=== PATIENT | male | born 1965 | race Two or more races ===

== ENCOUNTER 2016-10-09 21:31 | Inpatient (IN) | payer BC, MEDICAID ==
[~2016-10-09] VITALS: Ht 167.6 cm; Wt 84.9 kg
[2016-10-09] MEDS ORDERED: hydrALAzine 20 MG INJ IV ONE (22:30)
[2016-10-09] MEDS ORDERED: LIDOCAINE/MYLANTA 40 ML BTL PO ONE (22:30)
[2016-10-09 22:45] LABS: BASOPHILS % 0.3 % (0.0-2.0); EOSINOPHILS # 0.2 10^3/ul (0.0-0.5); EOSINOPHILS % 2.7 % (0.0-7.0); HEMATOCRIT 31.5 % (42.0-52.0); HEMOGLOBIN 10.6 g/dl (14.0-18.0); INR 1.06; LYMPHOCYTES % 16.4 % (15.0-51.0); MEAN CORPUSCULAR HEMOGLOBIN 30.2 pg (29.0-33.0); MEAN CORPUSCULAR HGB CONC 33.6 g/dl (32.0-37.0); MEAN CORPUSCULAR VOLUME 89.9 fl (82.0-101.0); MEAN PLATELET VOLUME 9.5 fl (7.4-10.4); MONOCYTE # 0.3 10^3/ul (0.3-0.9); MONOCYTES % 5.6 % (0.0-11.0); NEUTROPHIL # 4.4 10^3/ul (1.6-7.5); PLATELET COUNT 105 10^3/UL (140-440); PROTIME 13.8 Sec (12.2-14.2); PT RATIO 1.1; RED CELL DISTRIBUTION WIDTH 13.9 % (11.5-14.5); UNCORRECTED WBC 5.9 10^3/ul (4.8-10.8); WHITE BLOOD COUNT 5.9 10^3/ul (4.8-10.8)
[2016-10-09 22:46] LABS: PARTIAL THROMBOPLASTIN TIME 33.8 Sec (25.0-35.0)
[2016-10-09 22:48] LABS: ALBUMIN 4.1 g/dl (3.3-4.9); CONDITION 1; POTASSIUM 4.9 mmol/L (3.5-5.1)
[2016-10-09 22:50] LABS: CREATININE 10.5 mg/dl (0.61-1.24)
[2016-10-09 22:51] LABS: ALBUMIN/GLOBULIN RATIO 1.32; CALCIUM 9.6 mg/dl (8.4-10.2); TOTAL PROTEIN 7.2 g/dl (6.1-8.1)
[2016-10-09 23:02] LABS: TROPONIN-I 0.034 ng/ml (0.00-0.12)
--- NOTE | 2016-10-09 23:17 | RADRPT ---
PROCEDURE: XR Chest. CLINICAL INDICATION: Chest pain. TECHNIQUE: Single frontal view. COMPARISON: None. FINDINGS: There is interstitial disease bilaterally consistent with pulmonary edema. Superimposed pneumonia a t the right lung base cannot be excluded. The heart is enlarged. There is a small right pleural effusion. There is no left pleural effusion. There is no pneumothorax. IMPRESSION: 1. Pulmonary edema. 2. Possible right basilar pneumonia. 3. Cardiomegaly. 4. Small right pleural effusion. RPTAT: QQ .Keyon Perez MD, MD Date Time Electronically viewed and signed by .Keyon Perez MD, MD on 10/09/2016 23:17 .R/
--- NOTE | 2016-10-10 01:59 | ERA ---
ER Documentation Chief Complaint Date/Time DATE: 10/10/16 TIME: 01:57 Chief Complaint epigastric pain radiating to throat x 3 weeks now,last HD was 10/07/16 HPI This is a 70 mg epigastric pain radiating to 3 weeks. He also states admitted for short of breath. No nausea no vomiting no chills. Patient is a dialysis patient. Primary care physician is Dr. Jacobo. No chest pain. No other current complaints. Last dialysis on Monday. ROS All systems reviewed and are negative except as per history of present illness. Allergies Allergies: Coded Allergies: No Known Allergy (Unverified , 10/09/16) PMhx/Soc History of Surgery: Yes (AV fistula placement) Anesthesia Reaction: No Hx Neurological Disorder: No Hx Respiratory Disorders: No Hx Cardiac Disorders: Yes (HTN) Hx Psychiatric Problems: No Hx Miscellaneous Medical Probl: Yes (DM2, ESRD on HD MWF) Hx Alcohol Use: No Hx Substance Use: No Hx Tobacco Use: No Smoking Status: Former smoker Physical Exam Vitals Vital Signs Date Time Temp Pulse Resp B/P Pulse Ox O2 Delivery O2 Flow Rate FiO2 10/10/16 00:17 84 22 184/110 98 Room Air 10/09/16 23:00 86 20 179/109 99 Room Air 10/09/16 21:35 98.2 93 28 199/118 93 Physical Exam Const: [] Head: Atraumatic Eyes: Normal Conjunctiva ENT: Normal External Ears, Nose and Mouth. Neck: Full range of motion..~ No meningismus. Resp: Clear to auscultation bilaterally Cardio: Regular rate and rhythm, no murmurs Abd: Soft, non tender, non distended. Normal bowel sounds Skin: No petechiae or rashes Back: No midline or flank tenderness Ext: No cyanosis, or edema Neur: Awake and alert Psych: Normal Mood and Affect Result Diagram: 10/09/160 10/09/160 Results 24 hrs Laboratory Tests Test 10/09/16 22:10 Activated Partial Thromboplast Time 33.8Sec Alanine Aminotransferase (ALT/SGPT) 27IU/L Albumin 4.1g/dl Albumin/Globulin Ratio 1.32 Alkaline Phosphatase 157IU/L Anion Gap 22 Aspartate Amino Transf (AST/SGOT) 13IU/L B-Type Natriuretic Peptide 70211ZO/ML Basophils # 0.010^3/ul Basophils % 0.3% Blood Urea Nitrogen 64mg/dl Calcium Level 9.6mg/dl Carbon Dioxide Level 21mmol/L Chloride Level 105mmol/L Creatinine 10.50mg/dl Direct Bilirubin 0.00mg/dl Eosinophils # 0.210^3/ul Eosinophils % 2.7% Globulin 3.10g/dl Glucose Level 102mg/dl Hematocrit 31.5% Hemoglobin 10.6g/dl INR International Normalized Ratio 1.06 Indirect Bilirubin 0.0mg/dl Lipase 195U/L Lymphocytes # 1.010^3/ul Lymphocytes % 16.4% Mean Corpuscular Hemoglobin 30.2pg Mean Corpuscular Hemoglobin Concent 33.6g/dl Mean Corpuscular Volume 89.9fl Mean Platelet Volume 9.5fl Monocytes # 0.310^3/ul Monocytes % 5.6% Neutrophils # 4.410^3/ul Neutrophils % 75.0% Nucleated Red Blood Cells # 0.010^3/ul Nucleated Red Blood Cells % 0.0/100WBC Platelet Count 58630^3/UL Potassium Level 4.9mmol/L Prothrombin Time 13.8Sec Prothrombin Time Ratio 1.1 Red Blood Count 3.5010^6/ul Red Cell Distribution Width 13.9% Sodium Level 143mmol/L Total Bilirubin 0.0mg/dl Total Protein 7.2g/dl Troponin I 0.034ng/ml White Blood Count 5.910^3/ul Current Medications Medications (Trade) Dose Ordered Sig/Javid Route PRN Reason Start Time Stop Time Status Last Admin Dose Admin Miscellaneous Medication (Gi Cocktail (2)) 40 ml ONCE ONCE PO 10/09/16 22:30 10/09/16 22:31 DC 10/09/16 22:29 Hydralazine HCl (Apresoline) 20 mg ONCE ONCE IV 10/09/16 22:30 10/09/16 22:31 DC 10/09/16 22:30 Procedures/MDM EKG: Rate/Rhythm: Normal Sinus Rhythm QRS, ST, T-waves: No changes consistent w/ acute ischemia Impression: No evidence of ischemia or arrhythmia Chest X-ray 1V Interpreted by me: Soft Tissue: No acute abnormalities Bones: No acute abnormalities Mediastinum/Cardiac Silhouette/Lungs: Increased interstitial fluid markings. Impression: Pulmonary edema Patient's heart failure symptoms is concerning for acute decompensation and will require inpatient workup and monitoring. Further w/u for ischemia, arrhythmia, PE or dissection will be deferred to the inpatient team. Accepting Care Team: Current data and ongoing care discussed. Time: 1 AM Primary Provider: Dr. Nava who is on-call for Dr. Jacobo Consulting: None Outstanding Data: none Critical Care: Time: 45 minutes Treatments/Evaluations: Close monitoring and treatment of unstable vital signs, cardiorespiratory, and neurologic status, while maintaining tight balance of fluid, respiratory, and cardiac interventions. Departure Diagnosis: Primary Impression: Hypertensive emergency Additional Impression: Pulmonary edema Qualified Code: J81.0 - Acute pulmonary edema Condition: Critical ROSENDO LOOMIS Oct 10, 2016 01:59
[2016-10-10] MEDS ORDERED: CNC30T PO (06:47)
[2016-10-10] MEDS ORDERED: SEVE800T10 PO (06:48)
[2016-10-10] MEDS ORDERED: CARV6.2579 PO (06:48)
[2016-10-10] MEDS ORDERED: NIFE90TA11 PO (06:48)
[2016-10-10] MEDS: NIFEdipine (XL) 90 MG TAB PO SCH (09:10)
[2016-10-10] MEDS: SEVELAMER 800 MG TAB PO SCH ×2 (09:10→17:12)
[2016-10-10] MEDS: CINACALCET 30 MG TAB PO SCH (09:10)
[2016-10-10] MEDS: PANTOPRAZOLE (EC) 40 MG TAB PO SCH (10:38)
[2016-10-10] MEDS ORDERED: ONDANSETRON 4 MG TAB PO PRN (11:00)
[2016-10-10] MEDS ORDERED: DOCUSATE SODIUM 100 MG CAP PO PRN (11:00)
[2016-10-10] MEDS ORDERED: ACETAMINOPHEN 325 MG TAB PO PRN (11:00)
[2016-10-10] MEDS ORDERED: EPOETIN 10000 UNITS/1 ML INJ (ESRD) SC SCH (11:00)
[2016-10-10] MEDS: HEPARIN 5,000 UNIT/0.5 ML SYG SC SCH ×2 (11:26→20:53)
--- NOTE | 2016-10-10 11:56 | RADRPT ---
PROCEDURE: Ultrasound of the abdomen and retroperitoneum. CLINICAL INDICATION: Epigastric pain TECHNIQUE: Multiple real-time longitudinal and transverse images of the abdomen were acquired util izing a curved array transducer. Images were reviewed on a high-resolution PACS workstation. COMPARISON: None FINDINGS: The liver is normal in size, shape, and echogenicity. No hepatic masses are seen. There is no evide nce of intra or extrahepatic ductal dilatation. The common bile duct measures 4.2 mm in maximal dim ension. The gallbladder is contracted. No gallstones are identified. Gallbladder wall thickening i s poorly evaluated in the setting of a contracted gallbladder. The visualized portions of the pancreas are unremarkable with obscuration of the tail of the pancrea s. No abdominal free fluid is seen. Note is made of small bilateral pleural effusions. The spleen is normal and measures 11.0 cm. The kidneys are without calcifications or hydronephrosis. The kidneys are somewhat small. There is a 9 mm right upper pole renal cyst and 8 mm left a 4 inches cyst. The right kidney measures 7.1 cm, and the left kidney measures 7.3 cm. The visualized portions of the aorta and inferior vena cava are unremarkable. IMPRESSION: 1. Small bilateral kidneys with small cysts. 2. Small bilateral pleural effusions. RPTAT: KK .Tj Urias MD, MD Date Time Electronically viewed and signed by .Tj Urias MD, MD on 10/10/2016 11:56 .B/
--- NOTE | 2016-10-10 17:05 | CONS ---
DATE OF ADMISSION: 10/09/2016 DATE OF CONSULTATION: 10/10/2016 CHIEF COMPLAINT: Shortness of breast. HISTORY OF PRESENT ILLNESS: This is a 51-year-old male with a past medical history of end-stage rocky al disease on dialysis Monday, Monday, Monday with access of left upper extremity AV fistula, his tory of hypertension and history of diabetes who presented to [facility] with comp laints of shortness of breath. The patient also states over the last 2 to 3 weeks he has also been noted to have epigastric pain with radiation to his thighs that has been ongoing. These symptoms ar e in conjunction with worsening shortness breath that brought him to the emergency room. Upon arriv al, the patient had a chest x-ray which showed findings of edema, questionable pneumonia. The patie nt in the emergency room was noted to be hypertensive with systolic pressures in the 180s. He was t reated with IV hydralazine. The patient otherwise denies any hemoptysis, hemetemesis, hematochezia. PAST MEDICAL HISTORY: Includes a history of end-stage renal disease, hypertension and diabetes. PAST SURGICAL HISTORY: Status post AV fistula placement. FAMILY HISTORY: No family history of heart disease. SOCIAL HISTORY: Does not drink, smoke or do drugs. MEDICATIONS: Reviewed and reconciled. ALLERGIES: NO KNOWN DRUG ALLERGIES. REVIEW OF SYSTEMS: A 14-point review of systems was conducted. Pertinent positives as stated in HP I, otherwise negative. PHYSICAL EXAMINATION: VITAL SIGNS: Blood pressure is 181/113, respiratory rate 20, pulse 82, temperature 98.6. HEENT: Head is normocephalic. NECK: Supple. HEART: Regular rate. LUNGS: Show diminished breath sounds at base. ABDOMEN: Soft with mild tenderness to palpation in mid epigastric region. No rebound or guarding. EXTREMITIES: Negative for clubbing, cyanosis. Positive edema. DERMATOLOGIC: No rashes. MUSCULOSKELETAL: No joint effusions. NEUROLOGIC: No focal deficits. LABORATORY DATA: Shows white count 5.9, hemoglobin 10.6, hematocrit 31.5, platelet count 105. Sodi um 143, potassium 4.9, chloride 105, BUN 64, creatinine 10.5. IMAGING STUDIES: Chest x-ray reviewed. ASSESSMENT AND PLAN: This is a 51-year-old male who presents with: 1. Acute hypoxemic respiratory failure, etiology secondary to pulmonary edema, volume overload. Pl an is for the patient to be dialyzed today. Will anticipate dialysis daily. We will also attempt 2 to 3 liters of ultrafiltration. We will otherwise continue supplemental oxygen and will give nebul izer therapy as needed. Monitor closely. 2. Hypertensive urgency, etiology in part due to increased intravascular volume. Plan is to contin ue current blood pressure regimen. We will ultrafiltrate with hemodialysis. 3. Mineral bone disorder. Continue to monitor calcium, phosphorus levels. Defer phosphate binders at this time. 4. Anemia of end-stage renal disease. Will continue to monitor H and H levels. Will give Epogen w ith dialysis. 5. History of diabetes. We will monitor Accu-Cheks q.a.c. and at bedtime. 6. Mid epigastric pain. Etiology is unclear, possibly due to gastroesophageal reflux disease. The patient's LFTs are within normal limits. Will check abdominal ultrasound, monitor closely. 7. Gastroesophageal reflux disease with prophylaxis. The patient was placed on heparin and Protoni x. 8. Volume overload secondary to end-stage renal disease. As stated above, the patient will receive hemodialysis daily until euvolemic. Dictated By: ELIO ALEMAN/MARKIE Conf#: [id number] DID#: [id number]
[2016-10-10 17:51] VITALS: TEMP 98.6
[2016-10-10 18:21] VITALS: Ht 167.6 cm; Wt 84.9 kg
[2016-10-10 18:27] VITALS: BP 159/102; PULSE 83; PULSE 88; RESP 20
[2016-10-10 20:33] VITALS: BP 159/96; RESP 20
[2016-10-10 20:59] VITALS: PULSE 84
[2016-10-11] VITALS (22 sets, daily range): BP systolic 150–176; BP diastolic 84–102; PULSE 73–94; RESP 19–20
[2016-10-11 08:19] LABS: POTASSIUM 3.6 mmol/L (3.5-5.1)
[2016-10-11 08:20] LABS: BASOPHILS % 0.2 % (0.0-2.0); EOSINOPHILS # 0.1 10^3/ul (0.0-0.5); EOSINOPHILS % 2.3 % (0.0-7.0); HEMATOCRIT 28.9 % (42.0-52.0); HEMOGLOBIN 9.9 g/dl (14.0-18.0); LYMPHOCYTES # 0.7 10^3/ul (0.8-2.9); LYMPHOCYTES % 14.3 % (15.0-51.0); MEAN CORPUSCULAR HEMOGLOBIN 30.7 pg (29.0-33.0); MEAN CORPUSCULAR HGB CONC 34.3 g/dl (32.0-37.0); MEAN CORPUSCULAR VOLUME 89.6 fl (82.0-101.0); MEAN PLATELET VOLUME 9.5 fl (7.4-10.4); MONOCYTE # 0.4 10^3/ul (0.3-0.9); MONOCYTES % 8.4 % (0.0-11.0); NEUTROPHIL # 3.4 10^3/ul (1.6-7.5); NEUTROPHILS % 74.8 % (39.0-77.0); PLATELET COUNT 97 10^3/UL (140-440); RED BLOOD COUNT 3.22 10^6/ul (4.70-6.10); RED CELL DISTRIBUTION WIDTH 13.6 % (11.5-14.5); UNCORRECTED WBC 4.6 10^3/ul (4.8-10.8); WHITE BLOOD COUNT 4.6 10^3/ul (4.8-10.8)
[2016-10-11 08:21] LABS: CREATININE 8.23 mg/dl (0.61-1.24)
[2016-10-11 08:23] LABS: CALCIUM 9.3 mg/dl (8.4-10.2); MAGNESIUM 2.1 mg/dl (1.7-2.5); PHOSPHORUS 3.9 mg/dl (2.5-4.9)
[2016-10-11 08:24] LABS: CONDITION 1
[2016-10-11] MEDS: CINACALCET 30 MG TAB PO SCH (09:14)
[2016-10-11] MEDS: SEVELAMER 800 MG TAB PO SCH ×3 (09:14→18:17)
[2016-10-11] MEDS: PANTOPRAZOLE (EC) 40 MG TAB PO SCH (09:14)
[2016-10-11] MEDS: HEPARIN 5,000 UNIT/0.5 ML SYG SC SCH ×2 (09:21→20:53)
[2016-10-11] MEDS: NIFEdipine (XL) 90 MG TAB PO SCH (09:43)
--- NOTE | 2016-10-11 10:04 | PN ---
DATE: 10/11/2016 SUBJECTIVE: The patient is stable, had hemodialysis yesterday with 3 liters removed. No other acut e events noted. No hemoptysis, hematemesis or hematochezia. OBJECTIVE: VITAL SIGNS: Blood pressure is 159/89, respirations 19, pulse 82, temperature 98.0. HEENT: Head is normocephalic. NECK: Supple. HEART: Regular rate. LUNGS: Show diminished breath sounds at the base. ABDOMEN: Soft, nontender to palpation without rebound or guarding. EXTREMITIES: Negative for clubbing, cyanosis. Positive edema. DERMATOLOGIC: No rashes. MUSCULOSKELETAL: No joint effusions. NEUROLOGIC: No change in exam. MEDICATIONS: The patient's medications have been reviewed. LABORATORY DATA: Showed sodium 141, potassium 3.6, chloride 100, BUN 50, creatinine 9.23. White co unt 4.6, hemoglobin 9.9, hematocrit 28.9, platelet count is 97. The patient's abdominal ultrasound s hows no acute pathology. ASSESSMENT AND PLAN: 1. Acute hypoxemic respiratory failure secondary to pulmonary edema, volume overload. The patient had urgent dialysis yesterday with 3 1/2 liters removed. The patient is clinically improving, curre ntly stable on room air. We will continue ultrafiltration and volume removal with dialysis. Monito r closely. 2. Hypertensive urgency secondary to increased intravascular volume. Continue ultrafiltration with hemodialysis. We will continue current blood pressure regimen. 3. End-stage renal disease. The patient is on dialysis Monday, Monday, Monday, was dialyzed yes terday, anticipate dialysis today and tomorrow for solute clearance and volume removal. 4. Mineral bone disorder. Continue to monitor calcium and phosphorus levels. Continue phos binders . 5. Anemia of end-stage renal disease. Hemoglobin level stable. Continue Epogen. 6. Diabetes. Continue Accu-Cheks and sliding scale. 7. Epigastric pain secondary to gastroesophageal reflux disease. The patient's abdominal ultrasoun d shows no acute pathology. Continue PPI. 8. Volume overload secondary to end-stage renal disease. Continue ultrafiltration as stated above. 9. GI and deep venous thrombosis prophylaxis. Continue PPI and Protonix. Dictated By: ELIO ALLEN DO NR/MARKIE Conf#: [id number] DID#: [id number]
[2016-10-12] VITALS (21 sets, daily range): BP systolic 129–162; BP diastolic 75–106; PULSE 72–82; RESP 18–20
[2016-10-12 07:17] LABS: BASOPHILS % 0.6 % (0.0-2.0); EOSINOPHILS # 0.1 10^3/ul (0.0-0.5); EOSINOPHILS % 3.3 % (0.0-7.0); HEMATOCRIT 27.8 % (42.0-52.0); HEMOGLOBIN 9.4 g/dl (14.0-18.0); LYMPHOCYTES % 25.2 % (15.0-51.0); MEAN CORPUSCULAR HEMOGLOBIN 30.8 pg (29.0-33.0); MEAN CORPUSCULAR VOLUME 90.5 fl (82.0-101.0); MEAN PLATELET VOLUME 9.3 fl (7.4-10.4); MONOCYTE # 0.4 10^3/ul (0.3-0.9); MONOCYTES % 9.6 % (0.0-11.0); NEUTROPHIL # 2.4 10^3/ul (1.6-7.5); NEUTROPHILS % 61.3 % (39.0-77.0); PLATELET COUNT 91 10^3/UL (140-440); RED BLOOD COUNT 3.07 10^6/ul (4.70-6.10); RED CELL DISTRIBUTION WIDTH 13.5 % (11.5-14.5); UNCORRECTED WBC 3.9 10^3/ul (4.8-10.8); WHITE BLOOD COUNT 3.9 10^3/ul (4.8-10.8)
[2016-10-12 07:27] LABS: CONDITION 1
[2016-10-12 07:33] LABS: POTASSIUM 4.7 mmol/L (3.5-5.1)
[2016-10-12 07:35] LABS: CREATININE 10.85 mg/dl (0.61-1.24)
[2016-10-12 07:36] LABS: PHOSPHORUS 5.2 mg/dl (2.5-4.9)
[2016-10-12 07:37] LABS: MAGNESIUM 2.1 mg/dl (1.7-2.5)
[2016-10-12] MEDS: SEVELAMER 800 MG TAB PO SCH ×3 (08:31→17:10)
[2016-10-12] MEDS: PANTOPRAZOLE (EC) 40 MG TAB PO SCH (08:32)
[2016-10-12] MEDS: NIFEdipine (XL) 90 MG TAB PO SCH (08:32)
[2016-10-12] MEDS: CINACALCET 30 MG TAB PO SCH (08:33)
[2016-10-12] MEDS: HEPARIN 5,000 UNIT/0.5 ML SYG SC SCH ×2 (08:34→23:27)
--- NOTE | 2016-10-12 22:26 | DS ---
DATE OF ADMISSION: 10/10/2016 DATE OF DISCHARGE: HOSPITAL COURSE: This is a 51-year-old male with a past medical history of end-stage renal disease, history of diabetes, history of hypertension, history of anemia, history of GERD who presented to [facility] with shortness of breath and midepigastric pain. The patient, upon arri jose roberto to the emergency room, was noted to be volume overloaded with pulmonary edema and was admitted t o telemetry. In terms of the patient's pulmonary congestion, the [facility] The patient had 2 sessions of dialysis with over 5 liters removed. Following dialysis , the patient's clinical status improved, his respiratory failure and shortness of breath resolved. In terms of the patient's abdominal pain, etiology is likely due to GERD. The patient's abdominal ultrasound showed no acute findings. The patient's abdominal pain resolved once he was started on P PI. The patient's other medical problems including anemia, diabetes have been well controlled durin g the hospital course. The patient was hypertensive in part due to increased intravascular volume t hat has been controlled with blood pressure medications and dialysis. Currently, at this time, the patient will be discharged home and will follow up in 1 week's time with his primary care physician. At time of discharge, the patient is stable, in no acute distress. FINAL DIAGNOSES: 1. Acute hypoxic respiratory failure secondary to pulmonary edema, volume overload. 2. Hypertensive urgency, improved. 3. End-stage renal disease. 4. Mineral bone disorder. 5. Anemia of end-stage renal disease. 6. Diabetes. 7. Gastroesophageal reflux disease. DISCHARGE CONDITION: At the time of discharge were stable, in no acute distress. FINAL MEDICATIONS: Please see reconciliation list. Please note I spent over 40 minutes of time preparing the patient's discharge. Dictated By: ELIO ALEMAN/MARKIE Conf#: [id number] DID#: [id number]
[2016-10-13] VITALS (7 sets, daily range): BP systolic 140–151; BP diastolic 89–97; PULSE 74–87; RESP 18–20
[2016-10-13] MEDS: SEVELAMER 800 MG TAB PO SCH (08:08)
[2016-10-13] MEDS: PANTOPRAZOLE (EC) 40 MG TAB PO SCH (08:09)
[2016-10-13] MEDS: CINACALCET 30 MG TAB PO SCH (08:09)
[2016-10-13] MEDS: NIFEdipine (XL) 90 MG TAB PO SCH (08:10)
[2016-10-13] MEDS: HEPARIN 5,000 UNIT/0.5 ML SYG SC SCH (08:12)
--- NOTE | 2016-10-13 10:42 | PN ---
DATE: 10/13/2016 SUBJECTIVE: The patient was unable to be discharged yesterday due to hemodialysis. The patient is scheduled for discharge today. The patient had no acute events overnight. No hemoptysis, hematemes is or hematochezia. OBJECTIVE: VITAL SIGNS: Blood pressure 151/95, respirations 18, pulse 85, temperature 98.0. I's AND O'S: The patient had 1.9 liters in, with 3.5 liters out. HEENT: Head is normocephalic. NECK: Supple. HEART: Regular rate. LUNGS: Showed diminished breath sounds at the base. ABDOMEN: Soft, nontender to palpation. No rebound or guarding. EXTREMITIES: Negative for clubbing or cyanosis. Trace edema. DERMATOLOGIC: No rashes. MUSCULOSKELETAL: Have no joint effusion. NEUROLOGIC: No change in exam. MEDICATIONS: The patient's medications were reviewed. LABORATORY DATA: Has been reviewed. No new labs. ASSESSMENT AND PLAN: 1. Acute hypoxemic respiratory failure. Resolved. Etiology is secondary to pulmonary edema. 2. Hypertensive urgency. Improved. The patient had hemodialysis with volume removal. Will contin ue the current blood pressure regimen. 3. End-stage renal disease. Continue dialysis on Monday, Monday, Monday. 4. Mineral bone disorder. Continue to monitor calcium and phosphorus levels. Continue Sensipar. 5. Anemia of end-stage renal disease. Continue Epogen. 6. Diabetes. Currently controlled on diet. No need for insulin. 7. Gastroesophageal reflux disease. Continue PPI. 8. Volume overload. Improving. Continue ultrafiltration dialysis. 9. Gastrointestinal and deep vein thrombosis prophylaxis. Continue Protonix and sequential leg squ eezers. Dictated By: ELIO ALEMAN/MARKIE Conf#: [id number] DID#: [id number]
== END 2016-10-13 10:25 | disposition home or self-care (01) | DRG 189 ==
LOC: E/R 21:31 → TEL 10-10 01:22
PROVIDERS: ADMIT Internal Medicine; ATTEND Internal Medicine
PROC: 5A1D60Z (ICD-10-PCS; principal; 2016-10-10)
DX: J96.01 Acute respiratory failure with hypoxia (principal); J81.0 Acute pulmonary edema; E11.22 Type 2 diabetes mellitus with diabetic chronic kidney disease; I12.0 Hypertensive chronic kidney disease with stage 5 chronic kidney disease or end stage renal disease; N18.6 End stage renal disease; D63.1 Anemia in chronic kidney disease; K21.9 Gastro-esophageal reflux disease without esophagitis; I16.0 Hypertensive urgency; E83.89 Other disorders of mineral metabolism; Z99.2 Dependence on renal dialysis; Z87.891 Personal history of nicotine dependence
CPT/HCPCS: 36415; 71010; 76700; 80048; 80053; 83690; 83735; 83880; 84100; 84484; 85025; 85610; 85730; 87081; 90935; 93005; 96372; 96374; J0360; J0886

== ENCOUNTER 2018-03-01 11:24 | Inpatient (IN) | END 2018-03-08 13:26 | disposition home health service (06) | DRG 64 ==

== ENCOUNTER → 2018-04-02 | Outpatient (CLI) | END | disposition home or self-care (01) ==